=== PATIENT | male | born 1965 | race Caucasian/White ===

== ENCOUNTER 2025-05-18 09:18 | Outpatient (AMB) | payer OTHER, SELFPAY ==
--- NOTE | 2025-05-18 09:31 | A.OFFPC_ITS ---
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 Allergies cat dander Allergy (Verified 05/18/25 09:35) Itchy Eyes Medication List - Last Reconciled 05/18/25 by MISTY Andrews levothyroxine 75 mcg PO DAILY levothyroxine (Unithroid) 88 mcg PO DAILY turmeric root extract mg PO Tobacco use date assessed: 05/18/25 Dental Screening Dental Screen Date: 05/18/25 Did you have a dental visit in the last 12 months?: Yes Did you have a dental problem in the last 6 months where you did not have access to dental care?: No Was dental information given to patient?: Patient has dentist HPI HPI Comments History of Present Illness Details This is a 59-year-old male with a past medical history of right shoulder separation, BPH status post TURP 2022, Betzy's, thyroid nodules, basal cell carcinoma, left lower extremity DVT and PE presenting for a physical exam. He is a new patient, and medical records have not been received by our office yet. Betzy's thyroiditis, thyroid nodules-followed by Dr. Spain. Patient underwent thyroid nodule biopsy in the past which was benign. His last thyroid ultrasound was approximately 14 months ago, and endocrinology is following this. He is treated with levothyroxine 75 mcg daily and 1-1/2 tablets 1 day per week. Basal cell carcinoma-followed by [facility]. Seen annually for exams. Patient endorses an abdominal hernia that he noticed 4 or 5 months ago. It is not painful. He notices it when he does sit-ups. He has allergic conjunctivitis of both eyes. He uses andq-gzn-fwzbuij eyedrops which helped. He wonders if he may be related to his cats. He is interested in allergy testing and immunotherapy. He has a bump on his right thumb that he noticed 6 months ago. It is not painful. It is not enlarging. There is no redness or discharge. Denies trauma. He is due for colonoscopy. He believes the last 1 was around age 52 and he had a couple of polyps. There is no family history of colon cancer. Patient says he is due for tetanus immunization, and Tdap is administered today. Patient had ACL repair in [place] in 2005 on the left side. He gets occasional pain and some clicking in the knee, but it is not interfering with ADLs. There is no weakness or giving out of the knee. BPH-TURP 2022 at [facility]. Patient has chronically elevated PSA that is generally around 6. He was told to follow up with Urology if it increases. Patient was diagnosed with left lower extremity DVT and PE in 2022. He reports seeing hematology for evaluation with negative hypercoagulability workup. They thought this could be attributed to COVID-19 infection. He was on anticoagulation for 6 months. No known recurrence. Dental provider is [facility]. Vehicle Refinisher is Dr. Pfeiffer. ROS: Constitutional: No unexplained weight loss, fever, chills, fatigue or night sweats. Eyes: No vision changes, blurry vision, double vision. See HPI. ENT: No hearing loss, sneezing, congestion, runny nose or sore throat. Respiratory: No shortness of breath, cough or sputum production. Cardiovascular: No chest pain, chest pressure or chest discomfort. No palpitations or pedal edema. Gastrointestinal: No anorexia, nausea, vomiting or diarrhea. No abdominal pain or blood in stool. Genitourinary: No dysuria, hematuria, urinary frequency. Neurologic: No headache, dizziness, syncope, unilateral weakness, ataxia, numbness or tingling in the extremities. Musculoskeletal: See HPI Hematologic/Lymphatics: No bleeding or bruising. No painful lymph nodes. Skin: No rash Endocrine: No cold or heat intolerance. No polyuria or polydipsia. Psychiatric: No depression or anxiety. No SI/HI. Physical exam: Constitutional: Alert, in no distress. Head: Normocephalic. Eyes: Pupils are equal, round and reactive to light. Extraocular muscles intact. Ear, Nose and Throat: Canals clear. TMs normal. Normal nasal mucosa. No nasal discharge. No oral lesions. Neck: Supple, Full range of motion. No lymphadenopathy. No palpable thyroid masses. Respiratory: Clear to auscultation. Cardiovascular: S1 S2 regular. No murmurs. No carotid bruits. Gastrointestinal: Abdomen soft, non-tender, non-distended. Normal bowel sounds. Small, reducible umbilical hernia. Visible, moderate sized bulging when the patient tries to sit up consistent with diastasis recti. Neurologic: No focal neurological deficits. Skin: No rashes Left knee: No crepitus. Full range of motion. Strength 5/5. Negative Shreya test. Negative Maricruz test. Normal gait. Hand: pea sized firm subcutaneous lump on the right thumb joint, nontender, no erythema Extremities: Warm and well perfused. No clubbing, cyanosis or edema. Intact p eripheral pulses. Psychiatric: Normal mood and affect [facility] Medical History (Updated 05/18/25 @ 14:09 by MISTY Andrews) Left knee pain Routine physical examination Allergic conjunctivitis Umbilical hernia Diastasis recti Subcutaneous mass of right thumb Betzy thyroiditis Pulmonary embolism Left leg DVT Elevated PSA Screening for cardiovascular condition Screen for colon cancer History of blood clots Sprain of LCL (lateral collateral ligament) of knee Prostate troubles Thyroid disease Hyperlipemia Surgical History (Updated 05/18/25 @ 14:02 by MISTY Andrews) History of knee surgery History of shoulder surgery H/O transurethral resection of prostate History of lumbar laminectomy for spinal cord decompression Family History (Updated 05/18/25 @ 09:40 by Airam Farias CMA) Mother Hypertension Hyperlipemia Father Hypertension Hyperlipemia Diabetes Brother Hypertension Hyperlipemia Diabetes Paternal Grandfather Hypertension Hyperlipemia Cardiovascular disease Maternal Grandmother Hyperlipemia Paternal Grandmother Hyperlipemia Maternal Grandfather Hyperlipemia Heart attack Social History (Updated 05/18/25 @ 09:41 by Airam Farias CMA) Housing: House Alcohol intake: never Patient Tobacco Use Status: Never used Tobacco e-Cigarette/Vaping Use: Never Used Second Hand Smoke Exposure: No service: No Current occupational status: employed 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 1. Little interest or pleasure in doing things: not at all 2. Feeling down, depressed, or hopeless: not at all 3. Trouble falling or staying asleep, or sleeping too much: not at all 4. Feeling tired or having little energy: not at all 5. Poor appetite or overeating: not at all 6. Feeling bad about yourself - or that you are a failure or have let yourself or your family down: not at all 7. Trouble concentrating on things, such as reading the newspaper or watching television: not at all 8. Moving or speaking so slowly that other people could have noticed. Or the opposite - being so fidgety or restless that you have been moving around a lot more than usual: not at all 9. Thoughts that you would be better off or of hurting yourself in some way: not at all Total score: 0 Depression Screening Interpretation: Negative Depression Screening Done: Yes 64564 - PHQ-9 Billing: Yes Source: Developed by Drs. Lauri Wayen, Michela Doan, Darek Earl and colleagues, with an educational sandra from [employer]. Thrive Questionnaire Date Thrive assessed: 05/18/25 I am a: Patient What is your living situation today?: I have a steady place to live Within the past 12 months, did the food you bought not last and you didn't have the money to get more?: Never true Within the past 12 months, did you worry whether your food would run out before you got money to buy more?: Never true Do you have trouble paying for medicines?: No Do you have trouble getting transportation to medical appointments?: No Do you have trouble paying your heating and electricity bill?: No Do you have trouble taking care of your child, family member or friend?: No Do you have trouble with day-to-day activities such as bathing, preparing meals, shopping, managing finances, etc.?: No Are you currently unemployed and looking for a job?: No Are you interested in more education?: No Please select the resources that you would like help with: None Currently or been in a relationship where the following occur: No concerns reported THRIVE Score: 0 AUDIT C Alcohol Use Questionnaire (AUDIT-C) 1. How often do you have a drink containing alcohol?: Never 3. How often do you have six or more drinks on one occasion?: Never Total Score: 0 LISA-7 AMB Questionnaire LISA-7 Date LISA - 7 assessed: 05/18/25 Feeling nervous, anxious, or on edge: 0 = Not at all Not being able to stop or control worryin = Not at all Worrying too much about different things: 0 = Not at all Trouble relaxin = Not at all Being so restless that it is hard to sit still: 0 = Not at all Becoming easily annoyed or irritable: 0 = Not at all Feeling afraid as if something awful might happen: 0 = Not at all Total LISA-7 score (0-4 normal; 5-9 mild; 10-14 moderate; 15-21 severe): 0 Source: Developed by Drs. Lauri Wayne, Michela Doan, Darek Earl and colleagues, with an educational sandra from [employer]. LISA-7 Assessment Billing LISA-7 Assessment Tool: LISA-7 Assessment 53146 Physical exam (Primary Care) Vital Signs: Last Vital Signs Temp 97.9 F 05/18/25 09:41 Pulse 76 05/18/25 09:41 Resp 15 05/18/25 09:41 BP 116/76 05/18/25 09:41 Pulse Ox 97 05/18/25 09:41 Oxygen Delivery Method Room Air 05/18/25 09:41 BMI result Body Mass Index 28.9 Tobacco/Smoking Status: Tobacco use Status Tobacco use date assessed 05/18/25 05/18/25 09:44 Patient Tobacco Use Status Never used Tobacco 05/18/25 09:44 e-Cigarette/Vaping Use Never Used 05/18/25 09:44 PHQ-9: PHQ-9 Score PHQ-9: Total score 0 05/18/25 10:31 Depression Screening Interpretation: Negative Thrive Assessment: Date of Thrive Assessment Date Thrive assessed 05/18/25 05/18/25 09:34 Currently or been in a relationship where the following occur: No concerns reported Immunizations Boostrix Tdap 2.5 Lf unit-8 mcg-5 Lf/0.5 mL intramuscular syringe Performing Provider: MISTY Andrews Performing Location: [facility] Medicine Administered by: Airam Farias CMA on 05/18/25 10:31 Dose Route Admin Location Dispensed Lot Number Expiration Date [facility] Sterilization Technician 0.5 mL IM Left Deltoid 0.5 mL [id number] 07/05/27 98053-643-56 Medic Trace Total Dispensed Waste 0.5 mL 0 % VIS Given Date VIS Provided VIS Publication Date 05/18/25 Single Vaccine 21 Eligibility Eligibility Date Funding Source Not [facility] Eligible 05/18/25 Private Coding Level of Care Code New Pt Level 3 (20162) Est Pt Prev Care 40-64y(01196) Diagnoses Routine physical examination Z00.00 Elevated PSA R97.20 Betzy thyroiditis E06.3 Subcutaneous mass of right thumb R22.31 Diastasis recti M62.08 Umbilical hernia without obstruction and without gangrene K42.9 Obstruction and gangrene presence: without obstruction or gangrene Allergic conjunctivitis H10.10 Chronic pain of left knee M25.562; G89.29 Chronicity: chronic Additional Codes LISA-7 Assessment Billing - LISA-7 Assessment Tool: LISA-7 Assessment 78771 ([id number]) PHQ-9 - 62264 - PHQ-9 Billing: Yes ([id number]) Assessment & Plan Assessment & Plan (1) Routine physical examination: Code(s): Z00.00 - Encounter for general adult medical examination without abnormal findings Category: Medical Plan: Patient is seen today for a routine physical. As part of this visit we reviewed the following issues, which are considered and essential part of preventative health in this age group: - Screening for colon cancer - Discussed Prostate cancer screening - Blood pressure screening - Cholesterol screening - Screening for depression - Education about skin cancer - Recommendations about immunizations - Recommendation of an eye exam - Screening for substance abuse (2) Elevated PSA: Code(s): R97.20 - Elevated prostate specific antigen [PSA] Category: Medical Plan: Check PSA level. (3) Betzy thyroiditis: Code(s): E06.3 - Autoimmune thyroiditis Category: Medical Plan: Continue management per endocrinology. (4) Subcutaneous mass of right thumb: Code(s): R22.31 - Localized swelling, mass and lump, right upper limb Category: Medical Plan: Possible ganglion. X-ray ordered to rule out lytic lesion. (5) Diastasis recti: Code(s): M62.08 - Separation of muscle (nontraumatic), other site Category: Medical Plan: Refer to general surgery. (6) Umbilical hernia: Code(s): K42.9 - Umbilical hernia without obstruction or gangrene Category: Medical Qualifiers: Obstruction and gangrene presence: without obstruction or gangrene Qualified Code(s): K42.9 - Umbilical hernia without obstruction or gangrene Plan: Refer to general surgery. (7) Allergic conjunctivitis: Code(s): H10.10 - Acute atopic conjunctivitis, unspecified eye Category: Medical Plan: Qeod-wzr-jqztits eyedrops are effective. He is interested immunotherapy. Referred to Allergy and immunology. (8) Left knee pain: Code(s): M25.562 - Pain in left knee Category: Medical Qualifiers: Chronicity: chronic Qualified Code(s): M25.562 - Pain in left knee; G89.29 - Other chronic pain Plan: Benign exam today. Monitor for increased pain or difficulty with ADLs or weakness. If he develops symptoms he will call the office. Plan Follow up in 1 year for annual physical exam. Orders: Orders TSH reflex Free T4 Today E06.3 - Autoimmune thyroiditis, I26.99 - Other pulmonary embolism without acute cor pulmonale, I82.402 - Acute embolism and thrombosis of unspecified deep veins of left lower extremity, R97.20 - Elevated prostate specific antigen [PSA], Z13.6 - Encounter for screening for cardiovascular disorders Complete Blood Count no Diff Today E06.3 - Autoimmune thyroiditis, I26.99 - Other pulmonary embolism without acute cor pulmonale, I82.402 - Acute embolism and thrombosis of unspecified deep veins of left lower extremity, R97.20 - Elevated prostate specific antigen [PSA], Z13.6 - Encounter for screening for cardiovascular disorders Prostate Specific Antigen Today E06.3 - Autoimmune thyroiditis, I26.99 - Other pulmonary embolism without acute cor pulmonale, I82.402 - Acute embolism and thrombosis of unspecified deep veins of left lower extremity, R97.20 - Elevated prostate specific antigen [PSA], Z12.5 - Encounter for screening for malignant neoplasm of prostate, Z13.6 - Encounter for screening for cardiovascular disorders TDaP Immunization Today Z23 - Encounter for immunization Lipid Panel Today E06.3 - Autoimmune thyroiditis, I26.99 - Other pulmonary embolism without acute cor pulmonale, I82.402 - Acute embolism and thrombosis of unspecified deep veins of left lower extremity, R97.20 - Elevated prostate specific antigen [PSA], Z13.6 - Encounter for screening for cardiovascular disorders Comprehensive Met. Panel Today E06.3 - Autoimmune thyroiditis, I26.99 - Other pulmonary embolism without acute cor pulmonale, I82.402 - Acute embolism and thrombosis of unspecified deep veins of left lower extremity, R97.20 - Elevated prostate specific antigen [PSA], Z13.6 - Encounter for screening for cardiovascular disorders XR finger RT min 2V Today R22.31 - Localized swelling, mass and lump, right upper limb Referrals Gastroenterology Referral Z12.11 - Encounter for screening for malignant neoplasm of colon Allergy & Immunology Referral H10.10 - Acute atopic conjunctivitis, unspecified eye General Surgery Referral K42.9 - Umbilical hernia without obstruction or g angrene, M62.08 - Separation of muscle (nontraumatic), other site
[2025-05-18 09:41] VITALS: BP 116/76; PULSE 76; RESP 15; TEMP 36.6; O2SAT 97; BMI 28.9
--- OUTSIDE RECORDS SUMMARY | 2025-05-18 10:48 | XMS_ITS | Clinical Summary ---
Author Organization [facility] Address [address] [facility] [address] [place] [phone] Phone Care Team Providers Care Linux System Administrator Name Role Phone Pcp, Unknown Primary Care Provider Unavailabl e Allergies No known active allergies Medications ELIQUIS 5 mg tablet Take 1 tablet by mouth 2 (two) times a day. 3 Active cholecalcifero l (VITAMIN D3) 25 MCG (1,000 unit) tablet Take 1,000 Units by mouth daily. Active turmeric (CURCUMIN MISC) by Miscellaneous route. Active levothyroxine (SYNTHROID, LEVOTHROID) 88 MCG tablet TAKE 1.5 TABLETS BY MOUTH 1 DAY A WEEK AND 1 TABLET 6 DAYS A WEEK 98 tablet 3 5 Active Active Problems Problem Noted Date Diagnosed Date Nontoxic multinodular goiter 09/21/2023 Assessment & Plan (09/21/2024 4:20 PM EST): Last ultrasound on 09/05/2024 reported relatively stable bilateral and isthmus nodules. Patient had benign FNA of the right largest and left mid nodule in 07/2017. The left lower pole nodule had nondiagnostic FNA in 07/2017 and the second FNA had atypia of undetermined significance (AUS) in 10/2017. Patient declined having the third biopsy of the left lower nodule with molecular testing because of previous painful FNAs. He has no compression symptoms in the thyroid bed. Plan to keep the TSH around 0.5-2.5. Repeat ultrasound in 2 year. Will obtain previous ultrasound images for review. Assessment & Plan (09/24/2023 6:55 PM EST): Last ultrasound on 08/13/2023 reported relatively stable bilateral and isthmus nodules. Patient had benign FNA of the right largest and left mid nodule in 07/2017. The left lower pole nodule had nondiagnostic FNA in 07/2017 and the second FNA had atypia of undetermined significance (AUS) in 10/2017. Patient declined having the third biopsy of the left lower nodule with molecular testing because of previous painful FNAs. He has no compression symptoms in the thyroid bed. Plan to keep the TSH between 0.5-2.5. Repeat ultrasound in 1 year. Will obtain previous ultrasound images for review. Acquired hypothyroidism 09/21/2023 Overview (09/21/2024): Diagnosed around 2016. Dx of Betzy's thyroiditis on thyroid FNA in 2016. Assessment & Plan (09/21/2024 4:22 PM EST): Clinically and biochemically euthyroid. TSH 2.66 on 08/10/2024 while taking 88 mcg levothyroxine 7.5 tablets/week giving a daily average dose of 94 mcg. -Keep current dose. -Reviewed symptoms of under and over replacement, patient to call if concerned. -Repeat TSH in 1 year or as clinically indicated -Follow-up in 1 year Assessment & Plan (09/21/2023 3:50 PM EST): Clinically euthyroid. TSH was at target in 08/2022 while on 88 mcg levothyroxine daily. Weight has been stable. Recent TSH was slightly elevated at 5.26 with normal free T4 of 1.25 on same levothyroxine dose but has been taking it together with Eliquis for the last few months. We decided to keep the current dose of levothyroxine but from the Eliquis by at least 30 minutes. Repeat TSH in 2 to 3 months. Reviewed symptoms of under and over replacement, patient to call if concerned. Social History Tobacco Use Types Packs/Day Years Used Date Smoking Tobacco: Never Smokeless Tobacco: Never Tobacco Cessation:Counseling Given: Not Answered Alcohol Use Standard Drinks/Week Comments Never 0 (1 standard drink = 0.6 oz pur e alcohol) Education Answer Date Recorded Are you interested in more education? Not on hugh e 05/06/2023 Are you concerned about learning? Not on file 05/06/2023 No 05/06/2023 No 05/06/2023 Digital Access Answer Date Recorded No 05/06/2023 No 05/06/2023 Reliable internet access at home? Not on file 05/06/2023 Device with a working camera? Not on file Sex and Gender Information Value Date Recorded Sex Assigned at Not on file Legal Sex Male 8:38 AM EDT Gender Identity Not on file Sexual Orientation Not on file Last Filed Vital Signs Vital Sign Reading Time Taken Comments Blood Pressure 106/66 09/21/2024 2:41 PM EST Pulse 61 09/21/2024 2:41 PM EST Temperature 36.5 C (97.7 F) 09/21/2023 3:06 PM EST Respiratory Rate - - Oxygen Saturation 98% 09/21/2024 2:41 PM EST Inhaled Oxygen Concentration - - Weight 96.6 kg (213 lb) 09/21/2024 2:41 PM EST Height - - Body Mass Index - - Plan of Treatment Upcoming Encounters Date Type Department Care Team (Late st Contact Info) Description 09/25/2025 3:40 PM EST Office Visit [facility] [address] [place] [phone] Betty Spain MD [address] [place] [phone] Health Maintenance Due Date Last Done Comments CREATININE LEVEL 1967 LIPID PANEL 1967 DEPRESSION SCREENING 1979 HEPATITIS C SCREENING 1985 HIV ONE-TIME SCREENING (18-65 YEARS) 1985 COLOGUARD 2012 COLONOSCOPY 2012 COLORECTAL CANCER SCREENING 2012 FIT TEST 2012 FOBT 2012 SIGMOIDOSCOPY 2012 VIRTUAL COLONOSCOPY 2012 PNEUMOCOCCAL VACCINES (50+ years) (1 of 1 - PCV) 2017 ZOSTER VACCINES (1 of 2) 2017 INFLUENZA VACCINE (#1) 2025 COVID-19 VACCINE (2023- season) 2025 TSH LEVEL 08/10/2025 08/10/2024, 04/01, 04/08/2024, Additional history exists Adult Td,Tdap Booster 02/04/2028 02/03/2018 SMOKING STATUS SCREENING (Once After 26 Yrs) Completed 09/21/2023 HEPATITIS A VACCINES Aged Out No long er eligible based on patient's age to complete this topic HIB VACCINES Aged Out No longer eligi ble based on patient's age to complete this topic MENINGOCOCCAL VACCINES (ACWY) Aged Out No longer eligible based on patient's age to complete this topic MENINGOCOCCAL VACCINES (B) Aged Out N o longer eligible based on patient's age to complete this topic Medical Devices Not on file Procedures Procedure Name Priority Date/Time Associated Diagnosis Comments TSH WITH REFLEX Routine 08/10/2024 3:07 PM EST Nontoxic multinodular goiter from Last 3 Months or Most Recently Relevant to Health Maintenance Results * TSH with reflex (08/10/2024 3:07 PM EST) Blood us Betty Spain MD LAB BLOOD ORDERABLES Final Res ult [address] [phone] from Last 3 Months or Most Recently Relevant to Health Maintenance Insurance [facility] Care Teams Linux System Administrator Relationship Specialty Start Date End Date Pcp, Unknown PCP - General 05/06/23 Additional Source Comments The information contained in this document represents components of the legal health record. It is not the complete legal health record.[facility]
== END 2025-05-18 10:29 | disposition home or self-care (01) ==
LOC: HO.HMCFM 09:18
PROVIDERS: PCP Physician Assistant Medical; Visit Provider Physician Assistant Medical
DX: Z00.00 Encounter for general adult medical examination without abnormal findings (principal); E06.3 Autoimmune thyroiditis; R97.20 Elevated prostate specific antigen [PSA]; R22.31 Localized swelling, mass and lump, right upper limb; M62.08 Separation of muscle (nontraumatic), other site; K42.9 Umbilical hernia without obstruction or gangrene; H10.10 Acute atopic conjunctivitis, unspecified eye; M25.562 Pain in left knee; G89.29 Other chronic pain; Z23 Encounter for immunization

== ENCOUNTER → 2025-05-18 09:18 | Outpatient (BNVA) | payer OTHER, SELFPAY | PROVIDERS: PCP Physician Assistant Medical; Visit Provider Physician Assistant Medical | DX: Z00.00 Encounter for general adult medical examination without abnormal findings (principal); R22.31 Localized swelling, mass and lump, right upper limb; R97.20 Elevated prostate specific antigen [PSA]; E06.3 Autoimmune thyroiditis; M62.08 Separation of muscle (nontraumatic), other site; K42.9 Umbilical hernia without obstruction or gangrene; H10.10 Acute atopic conjunctivitis, unspecified eye; M25.562 Pain in left knee; G89.29 Other chronic pain; Z76.89 Persons encountering health services in other specified circumstances; Z23 Encounter for immunization; Z13.30 Encounter for screening examination for mental health and behavioral disorders, unspecified | CPT/HCPCS: 90471; 90715; 96127 ==

== ENCOUNTER 2025-05-26 09:09 | Outpatient (REF) | payer OTHER, SELFPAY ==
--- OUTSIDE RECORDS SUMMARY | 2025-05-26 09:53 | XMS_ITS | Clinical Summary ---
Author Organization [facility] Address [address] [facility] [address] [place] [phone] Phone Care Team Providers Care Freezer Unloader Name Role Phone Pcp, Unknown Primary Care [...] 3:40 PM EST Office Visit [facility] [address] [place] [phone] Betty Spain MD [address] [place] [phone] [email or web address] Health Maintenance Due Date Last Done Comments [...] MD LAB BLOOD ORDERABLES Final Res ult [address] [phone] from Last 3 Months or Most Recently Relevant to Health Maintenance Insurance [facility] Care Teams Freezer Unloader Relationship Specialty Start Date End Date Pcp, Unknown PCP - General 05/06/23 Additional Source Comments The information contained in this document represents components of the legal health record. It is not the complete legal health record.[facility]
[2025-05-26 11:38] LABS: Hematocrit 47.5 % (42.0-52.0); Hemoglobin 15.9 g/dl (14.0-18.0); Mean Corpuscular HGB Conc 33.5 g/dl (31.0-36.0); Mean Corpuscular Hemoglobin 30.4 pg (27.0-33.0); Mean Corpuscular Volume 90.8 fL (80.0-98.0); NRBC Abs Auto 0.000 X10*3/uL (0.0-0.012); NRBC Pct Auto 0.0 /100WBC (0.0-0.2); Platelet Count 217 X10*3/uL (160-400); Red Blood Count 5.23 X10*6/uL (4.60-5.80); White Blood Count 4.2 X10*3/uL (4.8-10.8)
[2025-05-26 12:14] LABS: Alanine Aminotransferase 25 U/L (0-40); Albumin Level 4.4 g/dL (3.5-5.0); Alkaline Phosphatase 99 U/L (39-117); Anion Gap 7 (12-20); Aspartate Amino Transferase 23 U/L (5-37); Blood Urea Nitrogen 21 mg/dL (9-16); Calcium 9.3 mg/dL (8.4-10.2); Carbon Dioxide 30 mmol/L (22-29); Chloride 111 mmol/L (96-108); Cholesterol 221 mg/dL (<200); Estimated Glomerular Filt Rate > 60; HDL Cholesterol 35 mg/dL (>40); Potassium 4.5 mmol/L (3.3-5.1); Sodium 143 mmol/L (135-145); Total Protein 6.7 g/dL (6.5-8.0); Triglycerides 123 mg/dL (<150)
[2025-05-26 12:18] LABS: Prostate Specific Antigen 6.55 ng/mL (<0.05-4.0)
== END 2025-05-26 09:10 | disposition home or self-care (01) ==
LOC: HO.WFDLDS 09:09
PROVIDERS: Visit Provider Physician Assistant Medical
DX: Z12.5 Encounter for screening for malignant neoplasm of prostate (principal); Z13.6 Encounter for screening for cardiovascular disorders; R97.20 Elevated prostate specific antigen [PSA]; I82.402 Acute embolism and thrombosis of unspecified deep veins of left lower extremity; I26.99 Other pulmonary embolism without acute cor pulmonale; E06.3 Autoimmune thyroiditis
CPT/HCPCS: 36415; 80053; 80061; 84153; 84443; 85027